=== PATIENT | male | born 1950 | race Hispanic/Latino ===

== ENCOUNTER 2024-10-17 10:19 | Emergency (ER) | payer MEDICARE, BC ==
[~2024-10-17] VITALS: Ht 180.3 cm; Wt 113.4 kg
[~2024-10-17 10:19] MED LIST: AUGMENTIN 500-1 EACH PO
[2024-10-17 10:24] VITALS: PULSE 67; RESP 17; TEMP 98.1
[2024-10-17 12:42] VITALS: O2SAT 97
== END 2024-10-17 12:53 | disposition home or self-care (01) ==
LOC: ER 10:22
DX: M25.512 Pain in left shoulder (principal); S43.492A Other sprain of left shoulder joint, initial encounter; X50.1XXA Overexertion from prolonged static or awkward postures, initial encounter; Y92.89 Other specified places as the place of occurrence of the external cause; I10 Essential (primary) hypertension; E11.9 Type 2 diabetes mellitus without complications; I48.91 Unspecified atrial fibrillation; I25.10 Atherosclerotic heart disease of native coronary artery without angina pectoris; K21.9 Gastro-esophageal reflux disease without esophagitis; E78.5 Hyperlipidemia, unspecified; Z79.01 Long term (current) use of anticoagulants; Z95.5 Presence of coronary angioplasty implant and graft
CPT/HCPCS: 93005; 99283